=== PATIENT | male | born 1995 ===

== ENCOUNTER 2018-03-02 17:21 | Inpatient (IN) | payer MEDICAID ==
[2018-03-02 17:28] VITALS: BMI 27.4
--- NOTE | 2018-03-02 18:11 | ED PDOC ---
Arrival/HPI - General Chief Complaint: Psychiatric Evaluation Time Seen by Provider: 03/02/18 17:29 Historian: Patient - History of Present Illness Narrative History of Present Illness (Text): 03/02/18 18:09 22 year old male, with past medical history of depression, presents to the Emergency department from [facility] for psychiatric admission today. Patient was initially seen at [facility] earlier today for suicidal ideation/depression and was medically cleared at the facility and was subsequently transferred to [facility] for psychiatric admission. Patient currently denies any medical complaints. Patient denies any fevers, chills, headache, dizziness, chest pain, shortness of breath, abdominal pain, nausea, vomiting, diarrhea, back pain, neck pain, or any other complaints. Patient will be admitted to Dr. Sheikh's service as per documentation. Time/Duration: Prior to Arrival Symptom Onset: Gradual Activities at Onset: Light Context: Other (Transfer from [facility]) Past Medical History - Provider Review Nursing Documentation Reviewed: Yes - Infectious Disease Hx of Infectious Diseases: None - Psychiatric Hx Anxiety: Yes Hx Depression: Yes Hx Substance Use: Yes - Anesthesia Hx Anesthesia: No Family/Social History - Physician Review Nursing Documentation Reviewed: Yes Family/Social History: Unknown Family HX Smoking Status: Never Smoked Hx Alcohol Use: No Hx Substance Use: Yes Substance used: marijuana Allergies/Home Meds Allergies/Adverse Reactions: Allergies lactose Allergy (Verified 03/02/18 17:28) DIARRHEA Review of Systems - Physician Review All systems were reviewed & negative as marked: Yes - Review of Systems Constitutional: absent: Fevers Respiratory: absent: SOB, Cough Cardiovascular: absent: Chest Pain, WRIGHT Gastrointestinal: absent: Abdominal Pain, Diarrhea, Nausea, Vomiting Genitourinary Male: absent: Dysuria, Urinary Output Changes Musculoskeletal: absent: Back Pain, Neck Pain Skin: absent: Rash Neurological: absent: Headache, Dizziness Physical Exam Respiratory Rate: Normal Appearance: Positive for: Well-Appearing, Non-Toxic, Comfortable Pain Distress: None Mental Status: Positive for: Alert and Oriented X 3 - Systems Exam Head: Present: Atraumatic, Normocephalic Pupils: Present: PERRL Extroacular Muscles: Present: EOMI Conjunctiva: Present: Normal Mouth: Present: Moist Mucous Membranes Neck: Present: Normal Range of Motion Respiratory/Chest: Present: Clear to Auscultation, Good Air Exchange. No: Respiratory Distress, Accessory Muscle Use Cardiovascular: Present: Regular Rate and Rhythm, Normal S1, S2. No: Murmurs Abdomen: No: Tenderness, Distention, Peritoneal Signs Back: Present: Normal Inspection Upper Extremity: Present: Normal Inspection. No: Cyanosis, Edema Lower Extremity: Present: Normal Inspection. No: Edema Neurological: Present: GCS=15, CN II-XII Intact, Speech Normal Skin: Present: Warm, Dry, Normal Color. No: Rashes Psychiatric: Present: Alert, Oriented x 3, Normal Insight, Normal Concentration Medical Decision Making ED Course and Treatment: 03/02/18 18:11 Impression: 22 year old male presents to the Emergency department for psychiatric admission. Plan: -- Reassess and disposition Prior Visits: Notes and results from previous visits were reviewed. Progress Notes: Patient admitted under Dr. Sheikh's service. - Scribe Statement The provider has reviewed the documentation as recorded by the Scribe Nan August. All medical record entries made by the Scribe were at my direction and personally dictated by me. I have reviewed the chart and agree that the record accurately reflects my personal performance of the history, physical exam, medical decision making, and the department course for this patient. I have also personally directed, reviewed, and agree with the discharge instructions and disposition. Disposition/Present on Arrival - Present on Arrival Any Indicators Present on Arrival: No History of DVT/PE: No History of Uncontrolled Diabetes: No Urinary Catheter: No History of Decub. Ulcer: No History Surgical Site Infection Following: None - Disposition Have Diagnosis and Disposition been Completed?: Yes Diagnosis: Depression Disposition Time: 18:11 Patient Problems: Current Active Problems Problem Status Onset Depression Acute Condition: GOOD Forms: [employer] (Persian)
[2018-03-02 18:52] VITALS: O2SAT 98
[2018-03-02] MEDS ORDERED: Alum-Mag Hydrox-Simethicone Susp (30 mL) PO PRN (22:00)
[2018-03-02] MEDS ORDERED: Magnesium Hydroxide Susp 30 ml UD PO PRN (22:00)
--- NOTE | 2018-03-03 06:04 | PCM.BM ---
<Juan José Castellano O - Last Filed: 03/03/18 06:02> Treatment Plan Problems - Problems identified on initial assessmt Ineffective coping Date Initiated: 03/02/18 Time Initiated: 22:45 Assessment reference: NA Status: Monitor Hopelessness Date Initiated: 03/02/18 Time Initiated: 22:40 Assessment reference: NA Status: Monitor Medication nonadheherance Date Initiated: 03/02/18 Time Initiated: 22:50 Assessment reference: NA Status: Monitor Treatment assets and liabiliti Patient Assests: ADL independent, good support system, good interpersonal skills Patient Liabilities: financial problems, substance abuse - Milieu Protocol Maintain good personal hygiene: daily Encourage regular showers, daily Remind patient to perform daily oral care, daily Assist patient to perform ADL's Maintain personal safety: daily Educate patient to report safety concerns to staff, daily Monitor environment for contraband/sharps Medication safety: Monitor for expected outcome, potential side effects: daily, Assess barriers to learning: daily, Assess readiness for medication education: daily Family Contact Family involvement: Patient does not wish Family/SO involvement Family contact: Patient declines to allow family contact at present - Goals for Treatment Patient goals for treatment: To decrease my depression and anxiety Discharge/Continuing Care - Education Needs Education Needs: Patient Medication, Patient Coping Skills - Discharge Discharge Criteria: Tolerates medication w/o severe side effects <Alexandrea Matias Y - Last Filed: 03/03/18 10:33> Family Contact Family contact: Patient declines to allow family contact at present <Concepcion Sheikh A - Last Filed: 03/03/18 13:45> - Diagnosis (1) MDD (major depressive disorder) Status: Acute Interventions: 03/03/18 13:44 Psychoeducation Psychopharmacology/adjustment of medications as needed/ monitoring possible side effects Evaluate pt on daily basis Compliance with medications and follow up appointments Suicide and homicide risk assessment and prevention Relapse prevention Reduction of symptoms Improve functional status Family involvement As outpatient: cognitive behavioral therapy (2) RASHID (generalized anxiety disorder) Status: Acute Interventions: 03/03/18 13:45 Psychoeducation Psychopharmacology/adjustment of medications as needed/ monitoring possible side effects Evaluate pt on daily basis Discussion of importance of being compliant with medications and follow up appointments Suicide and homicide risk assessment and prevention, coping strategies, safety plan Reduction of symptoms Relaxation techniques and breathing exercises Improve functional status Family involvement Cognitive behavioral therapy as outpatient
[2018-03-03 06:50] LABS: BASO # 0.02 K/mm3 (0.0-2.0); BASO % 0.3 % (0.0-3.0); EOS # 0.2 (0.0-0.7); EOS % 2.6 % (1.5-5.0); GRAN # 4.09 (1.4-6.5); GRAN % 56.4 % (50.0-68.0); HEMOGLOBIN 15.9 g/dL (14.0-18.0); LYMPH # 2.4 (1.2-3.4); LYMPH % 32.6 % (22.0-35.0); MEAN CELL VOLUME 88.4 fl (80.0-105.0); MEAN CORPUSCULAR HEMOGLOBIN 29.8 pg (25.0-35.0); MEAN CORPUSCULAR HGB CONC 33.7 g/dl (31.0-37.0); MEAN PLATELET VOLUME 10.2 fl (7.0-11.0); MONO # 0.6 (0.1-0.6); MONO % 8.1 % (1.0-6.0); RBC 5.34 10^6/uL (3.5-6.1); RED CELL DISTRIBUTION WIDTH 12.4 % (11.5-14.5); WHITE BLOOD COUNT 7.3 10^3/uL (4.5-11.0)
[2018-03-03 06:52] LABS: GLUCOSE,FASTING 101 mg/dL (65-110); HDL CHOLESTEROL 47 mg/dL (29-60)
[2018-03-03 07:03] LABS: LDL CHOLESTEROL 176 mg/dL (0-129)
--- NOTE | 2018-03-03 13:40 | PCM.PSYCH ---
Initial Psychiatric Evaluation - Initial Psychiatric Evaluation Type of Admission: Voluntary Legal Status: Capacity (pt has capacity to sign consent for treatment) Chief Complaint (in patient's own words): "I thought life is not worth living" Patient's Reaction to Hospitalization: Pt will be not depressed or manic, will be more hopeful, will be not psychotic or anxious, will be not having thoughts of harming self or others, will be tolerating medications well, will not have major side effects, will be able to function, will not pose threat to self or others. History of Present Illness and Precipitating Events: shortly pt is 22yo male with self reported h/o depression/anxiety, ?borderline personality disorder, was transferred from [facility] for evaluation of depressive symptoms, hopelessness, inability to function, suicidal ideation with the plan to overdose on cyanide and "end it all", transfer was uneventful. pt was seen and examined at the treatment team meeting, presented with acceptable personal hygiene, but appearance was unkempt. good ADLs. pt said that he was feeling progressively more depressed for the past two years, since his father , pt reported that slowly he became hopeless/helpless, pt lost his job about 7months ago,. 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 pt reported that his depression and anxiety is interfering with his relationship with his girlfriend. pt said that prior to come to the hospital pt had thoughts of overdose on cyanide or cut his wrists, he spoke to his girlfriend who accompanied pt to the hospital. pt reported feeling anxious, and "heavy feeling in his chest", pt also reported to feel anxious all the times, and "I feel life is not worth living". difficulties to fall and to stay asleep, poor appetite. using marijuana recreational, pt denied smoking and denied drinking alcohol. UDS was positive for cannabis. pt denied being abuse. Patient denies any a/v/t hallucinations, denied paranoia, pt does not present to be psychotic. pt reported that he has irritability and mind racing, but never being diagnosed with bipolar. pt reported long h/o mental illness, was seen by psychiatrist, Dr. Paige at [facility]. Patient reports he's prescribed Seroquel, Ativan, and Ambien. Patient reports having difficulty with the side affects of the anti-depressant medications in which patient's sexual desires are suppressed. Patient reports feeling his depression worsen after taking anti-depressant medications. h/o two suicidal attempts, two years ago when pt tried to cut himself, nini in June 2015overdosed on flue medicine "it only damaged my liver, but now I am okay". , admission to [facility] two years ago, at [facility] for suicidal ideation, at [facility] pt said that at present moment he feels the same way when he wanted to end up his life two years ago, was not able to contract for safety. [facility], labs WNL, CBC, CMP, vitals stable. medical h/o: overdose, most likely on tylenol, h/o liver problems. pt denied family h/o mental illnesses, denied h/o suicidal attempts. 03/03/18 06:20 Lab Results 03/03/18 06:20: WBC 7.3, RBC 5.34, Hgb 15.9, Hct 47.2, MCV 88.4, MCH 29.8, MCHC 33.7, RDW 12.4, Plt Count 231, MPV 10.2, Gran % 56.4, Lymph % (Auto) 32.6, [place] % (Auto) 8.1 H, Eos % (Auto) 2.6, Baso % (Auto) 0.3, Gran # 4.09, Lymph # (Auto) 2.4, [place] # (Auto) 0.6, Eos # (Auto) 0.2, Baso # (Auto) 0.02 03/03/18 06:20: TSH 3rd Generation 0.93 03/03/18 06:20: Fasting Glucose 101, Triglycerides 98, Cholesterol 228 H, LDL Cholesterol Direct 176 H, HDL Cholesterol 47 03/03/18 06:20: Hemoglobin A1c 5.5 Vital Signs Temp Pulse Resp BP Pulse Ox 03/03/18 07:10 97.5 F L 90 20 119/79 03/03/18 03:45 19 03/02/18 19:57 97.8 F 72 17 122/82 98 03/02/18 17:21 97.8 F 78 18 124/76 98 The patient failed the outpatient lower level of care: Yes Current Medications: Active Medications Generic Name Dose Route Start Last Admin Trade Name Freq PRN Reason Stop Dose Admin Acetaminophen 325 mg 03/02/18 22:00 Tylenol 325mg Tab PO Q6H PRN Pain, Mild (1-3) Al Hydrox/Mg Hydrox/Simethicone 30 ml 03/02/18 22:00 Maalox Plus 30 Ml PO DAILY PRN Dyspepsia Lorazepam 2 mg 03/02/18 22:09 03/02/18 23:03 Ativan PO 2 mg Q6 PRN Administration Anxiety Protocol Lorazepam 2 mg 03/02/18 22:10 Ativan IM Q6H PRN Anxiety Protocol Magnesium Hydroxide 30 ml 03/02/18 22:00 Milk Of Magnesia PO DAILY PRN Constipation Trazodone HCl 50 mg 03/02/18 22:12 03/02/18 23:03 Desyrel PO 50 mg HS PRN Administration Insomnia Ziprasidone 20 mg 03/02/18 22:04 Geodon Inj IM Q8 PRN Agitation Protocol Ziprasidone 20 mg 03/02/18 22:08 Geodon Cap PO Q6 PRN Agitation Protocol Present on Admission - Present on Admission Any Indicators Present on Admission: No Review of Systems - Review of Systems Systems not reviewed;Unavailable: Acuity of Condition - Constitutional Constitutional: As Per HPI - EENT Eyes: As Per HPI Ears: As Per HPI Nose/Mouth/Throat: As Per HPI - Cardiovascular Cardiovascular: As Per HPI - Respiratory Respiratory: As Per HPI - Gastrointestinal Gastrointestinal: As Per HPI - Genitourinary Genitourinary: As Per HPI - Reproductive: Male Reproductive:Male: As Per HPI - Musculoskeletal Musculoskeletal: As Per HPI - Integumentary Integumentary: As Per HPI - Neurological Neurological: As Per HPI - Psychiatric Psychiatric: As Per HPI - Endocrine Endocrine: As Per HPI - Hematologic/Lymphatic Hematologic: As Per HPI Past Patient History - Past Psychiatric History Previous Treatment History: Inpatient Prior Professional Help: see HPI Prior Psychiatric Treatment: see HPI At what hospital: see HPI Duration: see HPI Nature of Treatment: see HPI Explanation of prior treatment: see HPI - PSYCHIATRIC Hx Depression: Yes Hx Substance Use: Yes - Infectious Disease Hx of Infectious Diseases: None - ANESTHESIA Hx Anesthesia: No - Medical/Surgical History Reviewed & confirmed: by de Meds Allergies/Adverse Reactions: Allergies Allergy/AdvReac Type Severity Reaction Status Date / Time lactose Allergy DIARRHEA Verified 03/03/18 05:50 Mental Status Examination - Personal Presentation Personal Presentation: Looks stated age - Affect Affect: Flat - Motor Activity Motor Activity: Psychomotor Retardation - Reliability in Providing Information Reliability in Providing Information: Fair - Speech Speech: Organized - Mood Mood: Depressed, Anxious - Formal Thought Process Formal Thought Process: No Impairment - Obsessions/Compulsions Obsessions: None Compulsions: None - Cognitive Functions Orientation: Person Sensorium: Alert Attention/Concentration: Easily distracted Estimate of Intelligence: Average Judgement: Intact, as evidence by: Insight regarding need for hospitalization - Risk Risk: Suicidal, Self-mutilation, Diminished functioning - Strength & Assets Inventory Strength & Assets Inventory: Family support, Employment history, Cooperative - Limitations Limitations: Other (good physical health, no psychosis, good insight) Psychiatric Physical Exam - Physical Exam Reviewed and confirmed: Emergency Department Physical Exam Results - Vital Signs Recent Vital Signs: Last Vital Signs Temp 97.5 F L 03/03/18 07:10 Pulse 90 03/03/18 07:10 Resp 20 03/03/18 07:10 BP 119/79 03/03/18 07:10 Pulse Ox 98 03/02/18 19:57 - Labs Result Diagrams: 03/03/18 06:20 Labs: Laboratory Results - last 24 hr 03/03/18 03/03/18 03/03/18 06:20 06:20 06:20 WBC 7.3 RBC 5.34 Hgb 15.9 Hct 47.2 MCV 88.4 MCH 29.8 MCHC 33.7 RDW 12.4 Plt Count 231 MPV 10.2 Gran % 56.4 Lymph % (Auto) 32.6 [place] % (Auto) 8.1 H Eos % (Auto) 2.6 Baso % (Auto) 0.3 Gran # 4.09 Lymph # (Auto) 2.4 [place] # (Auto) 0.6 Eos # (Auto) 0.2 Baso # (Auto) 0.02 Fasting Glucose 101 Triglycerides 98 Cholesterol 228 H LDL Cholesterol Direct 176 H HDL Cholesterol 47 TSH 3rd Generation 0.93 - EKG Data EKG Interpreted by: ER Physician DSM Plan - DSM 5 DSM 5 Diagnosis: MDD r/o RASHID r/o bipolar cannabis abuse - Recommended/Plan of Treatment Treatment Recommendations and Plan of Treatment: Milieu/structure/supportive therapy Medical consult appreciated SW consultation for discharge plan and social issues Med management wellbutrin for depression ativan for anxiety seroquel for mood stabilization and insomnia Family involvement Follow up on labs Will monitor closely Pt was educated about risk/benefits and alternatives of medications, coping strategies (safety plan, suicide prevention), relapse prevention, importance of follow up with psychiatrist and therapist, stay away from drugs/alcohol/smoking Projected ELOS: 7days Prognosis: fair Discharge Plan and Discharge Criteria: Day treatment program - Tobacco Cessation Tobacco Use Status for the last 30 days: Non User Tobacco Use Treatment Practical Counseling Provided: No Tobacco Use Treatment FDA-Approved Cessation Medication Provided: No - Alcohol or Substance Abuse Does the patient have an Alcohol or Substance Abuse Disorder: Yes Initial Psych Certification - Initial Certification I certify that the inpatient psychiatric facility admission was medically necessary for either: Treatment which could reasonbly be expected to improve pt's condition I estimate of hospitalization is necessary for proper treatment of the patient: 7 Unit of Time: Days My plans for post-hospital care for this patient are: day treatment program
[2018-03-03] MEDS ORDERED: Sodium Chloride 0.9% 1,000 ML IV SCH (15:15)
--- NOTE | 2018-03-03 15:56 | CP.PCM.CON ---
History of Present Illness - History of Present Illness History of Present Illness: PGY1 Medicine Consult Note for Dr. Stein Reason for Consult: Medical Consult Patient is a 22-year-old male with PMH significant for suicidal ideation. Patient was previously seen at [facility] for psychiatric admission prior to arrival to ED. Patient was initially seen at [facility] for suicidal ideation/depression and was medically cleared at the facility and was subsequently transferred to [facility] for psychiatric admission. Today, Patient complains of nausea and vomiting that has been going on for 2 weeks. Patient says he has been limiting his diet to liquids; mostly water due to his nausea, and when he tries to eat solid foods, he becomes too nausious and will "throw up soon after" he consumes food. Patient admits to diffuse abdominal pain that he says is "all over" and states he cannot localize, quantifies as 8/10, crampy in quality. Of note, Patient was recently around his girlfriend who he says had "flu like symptoms." Patient admits to associated diarrhea (non- bloody), vomiting (non-bloody, non-billious), fever, chills. Patient otherwise denies chest pain, shortness of breath, constipation, previous abdominal surgeries. Of note, patient admits to increasing his fast-food intake during the last few months. 12 Point ROS otherwise unremarkable. PMH: Suicidal Ideation, MDD, RASHID, Depression Surgeries: Patient denies PMD: Tommy Dorado Allergies: Lactose (intolerance) Review of Systems - Review of Systems All systems: reviewed and no additional remarkable complaints except Review of Systems: ROS unremarkable other than mentioned in HPI Past Patient History - Infectious Disease Hx of Infectious Diseases: None - Past Social History Smoking Status: Never Smoked - PSYCHIATRIC Hx Depression: Yes Hx Substance Use: Yes - ANESTHESIA Hx Anesthesia: No Meds Allergies/Adverse Reactions: Allergies Allergy/AdvReac Type Severity Reaction Status Date / Time lactose Allergy DIARRHEA Verified 03/03/18 05:50 - Medications Medications: Current Medications Acetaminophen (Tylenol 325mg Tab) 325 mg PO Q6H PRN PRN Reason: Pain, Mild (1-3) Al Hydrox/Mg Hydrox/Simethicone (Maalox Plus 30 Ml) 30 ml PO DAILY PRN PRN Reason: Dyspepsia Bupropion HCl (Wellbutrin) 75 mg PO BID [facility] Sodium Chloride (Sodium Chloride 0.9%) 1,000 mls @ 100 mls/hr IV .Q10H ALEKSANDAR Loperamide HCl (Imodium) 2 mg PO QID PRN PRN Reason: Diarrhea Lorazepam (Ativan) 2 mg PO Q6 PRN; Protocol PRN Reason: Anxiety Last Admin: 03/03/18 13:16 Dose: 2 mg Lorazepam (Ativan) 2 mg IM Q6H PRN; Protocol PRN Reason: Anxiety Lorazepam (Ativan) 1 mg PO BID [facility]; Protocol Magnesium Hydroxide (Milk Of Magnesia) 30 ml PO DAILY PRN PRN Reason: Constipation Ondansetron HCl (Zofran Odt) 4 mg PO Q8H PRN PRN Reason: Nausea/Vomiting Quetiapine Fumarate (Seroquel) 100 mg PO HS ALEKSANDAR; Protocol Ziprasidone (Geodon Inj) 20 mg IM Q8 PRN; Protocol PRN Reason: Agitation Ziprasidone (Geodon Cap) 20 mg PO Q6 PRN; Protocol PRN Reason: Agitation Physical Exam - Constitutional Appears: Well, Non-toxic, No Acute Distress - Head Exam Head Exam: ATRAUMATIC, NORMAL INSPECTION, NORMOCEPHALIC - Eye Exam Eye Exam: EOMI, Normal appearance, PERRL Pupil Exam: NORMAL ACCOMODATION - ENT Exam ENT Exam: Mucous Membranes Moist - Neck Exam Neck exam: Positive for: Normal Inspection - Respiratory Exam Respiratory Exam: Clear to Auscultation Bilateral, NORMAL BREATHING PATTERN - Cardiovascular Exam Cardiovascular Exam: REGULAR RHYTHM, +S1, +S2. absent: Bradycardia, Tach ycardia, Gallop, Systolic Murmur - GI/Abdominal Exam GI & Abdominal Exam: Normal Bowel Sounds, Soft, Tenderness (diffuse ). absent: Distended, Firm, Guarding, Hernia - Extremities Exam Extremities exam: Positive for: full ROM, normal capillary refill, normal inspection, pedal pulses present. Negative for: tenderness - Back Exam Back exam: NORMAL INSPECTION - Neurological Exam Neurological exam: Alert, CN II-XII Intact, Oriented x3, Reflexes Normal - Psychiatric Exam Psychiatric exam: Depressed, Normal Affect, Normal Mood - Skin Skin Exam: Dry, Intact, Normal Color, Warm Results - Vital Signs Recent Vital Signs: Last Vital Signs Temp 97.5 F L 03/03/18 07:10 Pulse 90 03/03/18 07:10 Resp 20 03/03/18 07:10 BP 119/79 03/03/18 07:10 Pulse Ox 98 03/02/18 19:57 - Labs Result Diagrams: 03/03/18 06:20 Labs: Laboratory Results - last 24 hr 03/03/18 03/03/18 03/03/18 06:20 06:20 06:20 WBC RBC Hgb Hct MCV MCH MCHC RDW Plt Count MPV Gran % Lymph % (Auto) [place] % (Auto) Eos % (Auto) Baso % (Auto) Gran # Lymph # (Auto) [place] # (Auto) Eos # (Auto) Baso # (Auto) Fasting Glucose 101 Hemoglobin A1c 5.5 Triglycerides 98 Cholesterol 228 H LDL Cholesterol Direct 176 H HDL Cholesterol 47 TSH 3rd Generation 0.93 03/03/18 06:20 WBC 7.3 RBC 5.34 Hgb 15.9 Hct 47.2 MCV 88.4 MCH 29.8 MCHC 33.7 RDW 12.4 Plt Count 231 MPV 10.2 Gran % 56.4 Lymph % (Auto) 32.6 [place] % (Auto) 8.1 H Eos % (Auto) 2.6 Baso % (Auto) 0.3 Gran # 4.09 Lymph # (Auto) 2.4 [place] # (Auto) 0.6 Eos # (Auto) 0.2 Baso # (Auto) 0.02 Fasting Glucose Hemoglobin A1c Triglycerides Cholesterol LDL Cholesterol Direct HDL Cholesterol TSH 3rd Generation Assessment & Plan - Assessment and Plan (Free Text) Assessment: Patient is a 22-year-old male with PMH significant for suicidal ideation. Patient was previously seen at [facility] for psychiatric admission. Patient now complaining of abdominal, diarrhea, nausea ongoing x2 weeks. Gastroenteritis / rule-out SBO / rule-out C-diff - Likely viral etiology - Follow-up on Stool for C-diff, cultures - Follow-up on Abdominal X-ray - Start: imodium PRN - Encourage oral hydration - Start: Zofran 4mg PO ODT - Monitor Hyperlipidemia - LDL elevated - Total cholesterol elevated - Patient educated on avoiding consumption of fast-food/ fatty foods - Patient encouraged to incorporate exercise into daily routine with moderate intensity exercises 30 minutes per day x4 times per week MDD/RASHID/Suicidal Ideation - Management per Psychiatric Team Patient seen and case discussed in detail with
--- NOTE | 2018-03-04 14:36 | PCM.PYCHPN ---
Psychiatric Progress Note - Psychiatric Progress Note Patient seen today, length of contact: 30 minutes Patient Chief Complaint: "I am trying my best to stay positive" Problems Identified/Issues Discussed: Suicide/ homicide prevention, past psychiatric h/o, current psychiatric symptoms, medical problems, risk/benefits and alternatives of medications, medications compliance, coping strategies, substance abuse h/o, relapse prevention, importance of follow up with psychiatrist and therapist, discharge plan. Medical Problems: Patient complains of nausea and vomiting, patient was seen by medical team, please see consult note for more detailed information Diagnostic Results: 03/03/18 06:20 Lab Results 03/03/18 06:20: WBC 7.3, RBC 5.34, Hgb 15.9, Hct 47.2, MCV 88.4, MCH 29.8, MCHC 33.7, RDW 12.4, Plt Count 231, MPV 10.2, Gran % 56.4, Lymph % (Auto) 32.6, [place] % (Auto) 8.1 H, Eos % (Auto) 2.6, Baso % (Auto) 0.3, Gran # 4.09, Lymph # (Auto) 2.4, [place] # (Auto) 0.6, Eos # (Auto) 0.2, Baso # (Auto) 0.02 03/03/18 06:20: RPR Nonreactive 03/03/18 06:20: TSH 3rd Generation 0.93 03/03/18 06:20: Fasting Glucose 101, Triglycerides 98, Cholesterol 228 H, LDL Cholesterol Direct 176 H, HDL Cholesterol 47 03/03/18 06:20: Hemoglobin A1c 5.5 Vital Signs Temp Pulse Resp BP Pulse Ox 03/04/18 07:29 97.9 F 74 20 114/70 03/04/18 07:26 97.9 F 74 20 111/74 03/03/18 16:00 91 H 108/61 03/03/18 07:10 97.5 F L 90 20 119/79 03/03/18 03:45 19 03/02/18 19:57 97.8 F 72 17 122/82 98 03/02/18 17:21 97.8 F 78 18 124/76 98 DSM 5 Symptoms Update: shortly pt is 22yo male with self reported h/o depression/anxiety, ?borderline personality disorder, was transferred from [facility] for evaluation of depressive symptoms, hopelessness, inability to function, suicidal ideation with the plan to overdose on cyanide and "end it all", transfer was uneventful. pt was seen and examined in the day treatment area patient presented with acceptable personal hygiene, but appearance was unkempt. good ADLs. Patient reports that he is trying his best to "stay positive" patient was concerned about his abdominal pain and nausea, patient reported that she was not able to sleep overnight time, patient reported that she still feels "depressed and hopeless", but denied any intent or plan to kill himself. As per staff patient is visible in the unit, no agitation or aggression, but flat affect, not very interactive. Patient denies any a/v/t hallucinations, denied paranoia, pt does not present to be psychotic. So far patient tolerates medications well, no side effects observed or reported, aims 0, no EPS. Impression: DSM 5 Diagnosis: MDD r/o RASHID r/o bipolar cannabis abuse Medication Change: Yes (Started 03/03/2018) Medical Record Reviewed: Yes Consults ordered or reviewed: Patient was seen by medical team, consult appreciated "Patient is a 22-year-old male with PMH significant for suicidal ideation. Patient was previously seen at [facility] for psychiatric admission. Patient now complaining of abdominal, diarrhea, nausea ongoing x2 we eks. Gastroenteritis / rule-out SBO / rule-out C-diff - Likely viral etiology - Follow-up on Stool for C-diff, cultures - Follow-up on Abdominal X-ray - Start: imodium PRN - Encourage oral hydration - Start: Zofran 4mg PO ODT - Monitor Hyperlipidemia - LDL elevated - Total cholesterol elevated - Patient educated on avoiding consumption of fast-food/ fatty foods - Patient encouraged to incorporate exercise into daily routine with moderate i ntensity exercises 30 minutes per day x4 times per week" Mental Status Examination - Cognitive Function Orientation: Person Memory: Intact Attention: Poor Concentration: Poor Association: WNL Fund of Knowledge: WNL - Mood Mood: Depressed, Anxious - Affect Affect: Flat - Formal Thought Process Formal Thought Process: No Impairment - Suicidal Ideation Suicidal Ideation: No - Homicidal Ideation Homicidal Ideation: No Goal/Treatment Plan - Goal/Treatment Plan Need for Continued Stay: Remain at risks for inpatient hospitalization, Severe depression anxiety, Discharge may exacerbated symptoms, Severe functional impairment Progress Toward Problem(s) and Goals/Treatment Plan: Milieu/structure/supportive therapy Medical consult appreciated SW consultation for discharge plan and social issues Med management wellbutrin for depression ativan for anxiety seroquel for mood stabilization and insomnia Family involvement Follow up on labs Will monitor closely Pt was educated about risk/benefits and alternatives of medications, coping strategies (safety plan, suicide prevention), relapse prevention, importance of follow up with psychiatrist and therapist, stay away from drugs/alcohol/smoking Estimated Date of D/C: 03/10/18
--- NOTE | 2018-03-05 17:25 | PCM.PYCHPN ---
Psychiatric Progress Note - Psychiatric Progress Note Patient seen today, length of contact: 30 minutes Patient Chief Complaint: "My energy is better" Problems Identified/Issues Discussed: Suicide/ homicide prevention, past psychiatric h/o, current psychiatric symptoms, medical problems, risk/benefits and alternatives of medications, medications compliance, coping strategies, substance abuse h/o, relapse prevention, importance of follow up with psychiatrist and therapist, discharge plan. Medical Problems: Patient complains of nausea and vomiting, patient was seen by medical team, please see consult note for more detailed information Diagnostic Results: 03/03/18 06:20 Lab Results 03/03/18 06:20: WBC 7.3, RBC 5.34, Hgb 15.9, Hct 47.2, MCV 88.4, MCH 29.8, MCHC 33.7, RDW 12.4, Plt Count 231, MPV 10.2, Gran % 56.4, Lymph % (Auto) 32.6, [place] % (Auto) 8.1 H, Eos % (Auto) 2.6, Baso % (Auto) 0.3, Gran # 4.09, Lymph # (Auto) 2.4, [place] # (Auto) 0.6, Eos # (Auto) 0.2, Baso # (Auto) 0.02 03/03/18 06:20: RPR Nonreactive 03/03/18 06:20: TSH 3rd Generation 0.93 03/03/18 06:20: Fasting Glucose 101, Triglycerides 98, Cholesterol 228 H, LDL Cholesterol Direct 176 H, HDL Cholesterol 47 03/03/18 06:20: Hemoglobin A1c 5.5 Vital Signs Temp Pulse Resp BP Pulse Ox 03/04/18 07:29 97.9 F 74 20 114/70 03/04/18 07:26 97.9 F 74 20 111/74 03/03/18 16:00 91 H 108/61 03/03/18 07:10 97.5 F L 90 20 119/79 03/03/18 03:45 19 03/02/18 19:57 97.8 F 72 17 122/82 98 03/02/18 17:21 97.8 F 78 18 124/76 98 DSM 5 Symptoms Update: shortly pt is 22yo male with self reported h/o depression/anxiety, ?borderline personality disorder, was transferred from [facility] for evaluation of depressive symptoms, hopelessness, inability to function, suicidal ideation with the plan to overdose on cyanide and "end it all", transfer was uneventful. pt was seen and examined today in his room, patient appears to be self isolating, reading a book, patient reported that his sleep is improving, appetite is back, patient reported "my energy is better", patient still appears to be depressed, patient presented with acceptable personal hygiene, but appearance was unkempt. good ADLs. Patient reported that she still feels "depressed and hopeless", but denied any intent or plan to kill himself. As per staff patient is more visible in the unit, but prefers to be alone, no agitation or aggression, but flat affect, not very interactive. Patient denies any a/v/t hallucinations, denied paranoia, pt does not present to be psychotic. So far patient tolerates medications well, no side effects observed or reported, aims 0, no EPS. Impression: DSM 5 Diagnosis: MDD r/o RASHID r/o bipolar cannabis abuse Medication Change: Yes (Wellbutrin increased) Medical Record Reviewed: Yes Mental Status Examination - Cognitive Function Orientation: Person Memory: Intact Attention: Poor Concentration: Poor Association: WNL Fund of Knowledge: WNL - Mood Mood: Depressed, Anxious - Affect Affect: Flat - Formal Thought Process Formal Thought Process: No Impairment - Suicidal Ideation Suicidal Ideation: No - Homicidal Ideation Homicidal Ideation: No Goal/Treatment Plan - Goal/Treatment Plan Need for Continued Stay: Remain at risks for inpatient hospitalization, Severe depression anxiety, Discharge may exacerbated symptoms, Severe functional impairment Progress Toward Problem(s) and Goals/Treatment Plan: Milieu/structure/supportive therapy Medical consult appreciated consultation for discharge plan and social issues Med management wellbutrin increased to 100 mg twice a day for depression ativan for anxiety seroquel for mood stabilization and insomnia Family involvement Follow up on labs Will monitor closely Pt was educated about risk/benefits and alternatives of medications, coping strategies (safety plan, suicide prevention), relapse prevention, importance of follow up with psychiatrist and therapist, stay away from drugs/alcohol/smoking Estimated Date of D/C: 03/10/18
--- NOTE | 2018-03-06 11:12 | RAD ---
Date of service: 03/06/2018 HISTORY: abdominal pain COMPARISON: None available. FINDINGS: BOWEL: Normal. No obstruction. No free air. BONES: Normal. OTHER FINDINGS: None. IMPRESSION: No active disease.
--- NOTE | 2018-03-06 12:20 | PCM.PYCHPN ---
Psychiatric Progress Note - Psychiatric Progress Note Patient seen today, length of contact: 30 minutes Problems Identified/Issues Discussed: I reviewed assessment and recent notes. Patient was interviewed at bedside. He is superficially cooperative and responses are coherent and relevant to qu estioning. Patient reports that he is irritable and feels edgy. Sleep is poor and patient indicates that he has a low frustration tolerance for the normal noises "the bustle" of an inpatient unit. He is tolerating his medications and denies any new discomfort or pain. Affect is constricted and irritable. Patient has been more visible in the unit, but generally keeps to himself. Reluctant to participate in groups and activities. There have been no behavioral issues thus far. Diagnostic Results: MDD r/o RASHID r/o bipolar cannabis abuse Medication Change: Yes (seroquel increased) Medical Record Reviewed: Yes Mental Status Examination - Cognitive Function Orientation: Person Memory: Intact Attention: Poor Concentration: Poor Association: WNL Fund of Knowledge: WNL - Mood Mood: Depressed, Anxious - Affect Affect: Flat - Formal Thought Process Formal Thought Process: No Impairment - Suicidal Ideation Suicidal Ideation: No - Homicidal Ideation Homicidal Ideation: No Goal/Treatment Plan - Goal/Treatment Plan Need for Continued Stay: Remain at risks for inpatient hospitalization, Severe depression anxiety, Discharge may exacerbated symptoms, Severe functional impairment Progress Toward Problem(s) and Goals/Treatment Plan: * c/w current tx and plan * Increased seroquel to 150 mg po hs for c/o internal agitation, lability and restless sleep * Vitals reviewed and noted below: Selected Entries 03/04/18 03/05/18 07:29 07:48 Temperature 97.9 F 98.5 F Pulse Rate 74 70 Respiratory 20 18 Rate Blood Pressure 114/70 106/64 Estimated Date of D/C: 03/10/18
[2018-03-07 07:29] VITALS: RESP 20
--- NOTE | 2018-03-07 09:42 | PCM.PYCHPN ---
Psychiatric Progress Note - Psychiatric Progress Note Patient seen today, length of contact: 30 minutes Problems Identified/Issues Discussed: I reviewed recent notes. Patient is still depressed, guarded and easton. Feels tired and irritable. Affect is constricted. Patient has been compliant with his medications and denies s/e, new discomfort or pain. Patient has been more visible in the unit, but generally keeps to himself. Spends a lot of time in his room and remains reluctant to participate in groups and activities. There have been no behavioral issues thus far. Diagnostic Results: MDD r/o RASHID r/o bipolar cannabis abuse Medication Change: Yes (seroquel increased) Medical Record Reviewed: Yes Mental Status Examination - Cognitive Function Orientation: Person Memory: Intact Attention: Poor Concentration: Poor Association: WNL Fund of Knowledge: WNL - Mood Mood: Depressed, Anxious - Affect Affect: Flat - Formal Thought Process Formal Thought Process: No Impairment - Suicidal Ideation Suicidal Ideation: No - Homicidal Ideation Homicidal Ideation: No Goal/Treatment Plan - Goal/Treatment Plan Need for Continued Stay: Remain at risks for inpatient hospitalization, Severe depression anxiety, Discharge may exacerbated symptoms, Severe functional impairment Progress Toward Problem(s) and Goals/Treatment Plan: * c/w current tx and plan * Increased seroquel to 150 mg po hs on 03/06/18 for c/o internal agitation, lability and restless sleep * Vitals reviewed and noted below: Selected Entries 03/05/18 03/06/18 07:48 07:29 Temperature 98.5 F 98.1 F Pulse Rate 70 73 Respiratory 18 18 Rate Blood Pressure 106/64 102/67 * Abdominal xray on 03/06/18~no active disease * No new weekend lab results thus far Estimated Date of D/C: 03/10/18
[2018-03-08 07:08] VITALS: BP 120/78; PULSE 77; TEMP 97.8
--- NOTE | 2018-03-08 09:40 | PCM.PYCHDC ---
Mental Status Examination - Mental Status Examination Orientation: Person, Place, Situation Memory: Intact Mood: Neutral Affect: Broad Speech: Appropriate Attention: WNL Concentration: WNL Association: WNL Fund of Knowledge: WNL Formal Thought Process: No Impairment Description of patient's judgement and insight: Much improved and fair insight and judgment Psychotic Thoughts and Behaviors: Patient denied perceptual disturbance including hallucinations or paranoia. Delusions were not elicited on day of discharge. Suicidal Ideation: No Current Homicidal Ideation?: No Discharge Summary - Discharge Note Reason for Hospitalization: shortly pt is 22yo male with self reported h/o depression/anxiety, ?borderline personality disorder, was transferred from [facility] for evaluation of depressive symptoms, hopelessness, inability to function, suicidal ideation with the plan to overdose on cyanide and "end it all", transfer was uneventful. Psychiatric History (includes Medical, Family, Personal Hx): see HPI Laboratory Data: Laboratory Tests 03/03/18 03/03/18 03/03/18 06:20 06:20 06:20 WBC RBC Hgb Hct MCV MCH MCHC RDW Plt Count MPV Gran % Lymph % (Auto) [place] % (Auto) Eos % (Auto) Baso % (Auto) Gran # Lymph # (Auto) [place] # (Auto) Eos # (Auto) Baso # (Auto) Fasting Glucose 101 Hemoglobin A1c 5.5 Triglycerides 98 Cholesterol 228 H LDL Cholesterol Direct 176 H HDL Cholesterol 47 TSH 3rd Generation 0.93 RPR C. difficile Tox B Gene 03/03/18 03/03/18 03/04/18 06:20 06:20 17:00 WBC 7.3 RBC 5.34 Hgb 15.9 Hct 47.2 MCV 88.4 MCH 29.8 MCHC 33.7 RDW 12.4 Plt Count 231 MPV 10.2 Gran % 56.4 Lymph % (Auto) 32.6 [place] % (Auto) 8.1 H Eos % (Auto) 2.6 Baso % (Auto) 0.3 Gran # 4.09 Lymph # (Auto) 2.4 [place] # (Auto) 0.6 Eos # (Auto) 0.2 Baso # (Auto) 0.02 Fasting Glucose Hemoglobin A1c Triglycerides Cholesterol LDL Cholesterol Direct HDL Cholesterol TSH 3rd Generation RPR Nonreactive C. difficile Tox B Gene Not detected Consultations:: List each consultation separately and include: 1. Reason for request. 2. Findings. 3. Follow-up Consultations: Consulted on by Dr. Looney on 03/03/18 Summary of Hospital Course include:: 1. Description of specific treatment plan utilized for patients during their course of treatmen. 2. Summarize the time- course for resolution of acute symptoms and/or regressed behaviors. 3. Describe issues identified and worked on during hospitalization. 4. Describe medication utilized. 5. Describe medical problems identified and treated. 6. Reassessment of suicide risk Summary of Hospital Course: PER DR. MEDELLIN'S ADMISSION NOTE ON 03/03/18 shortly pt is 22yo male with self reported h/o depression/anxiety, ?borderline personality disorder, was transferred from [facility] for evaluation of depressive symptoms, hopelessness, inability to function, suicidal ideation with the plan to overdose on cyanide and "end it all", transfer was uneventful. pt was seen and examined at the treatment team meeting, presented with acceptable personal hygiene, but appearance was unkempt. good ADLs. pt said that he was feeling progressively more depressed for the past two years, since his father , pt reported that slowly he became hopeless/helpless, pt lost his job about 7months ago,. 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 pt reported that his depression and anxiety is interfering with his relationship with his girlfriend. pt said that prior to come to the hospital pt had thoughts of overdose on cyanide or cut his wrists, he spoke to his girlfriend who accompanied pt to the hospital. pt reported feeling anxious, and "heavy feeling in his chest", pt also reported to feel anxious all the times, and "I feel life is not worth living". difficulties to fall and to stay asleep, poor appetite. using marijuana recreational, pt denied smoking and denied drinking alcohol. UDS was positive for cannabis. pt denied being abuse. Patient denies any a/v/t hallucinations, denied paranoia, pt does not present to be psychotic. pt reported that he has irritability and mind racing, but never being diagnosed with bipolar. pt reported long h/o mental illness, was seen by psychiatrist, Dr. Paige at [facility]. Patient reports he's prescribed Seroquel, Ativan, and Ambien. Patient reports having difficulty with the side affects of the anti-depressant medications in which patient's sexual desires are suppressed. Patient reports feeling his depression worsen after taking anti-depressant medications. h/o two suicidal attempts, two years ago when pt tried to cut himself, nini in June 2015overdosed on flue medicine "it only damaged my liver, but now I am okay". , admission to [facility] two years ago, at [facility] for suicidal ideation, at [place] pt said that at present moment he feels the same way when he wanted to end up his life two years ago, was not able to contract for safety. report reviewed from the [facility], [place], labs WNL, CBC, CMP, vitals stable. medical h/o: overdose, most likely on tylenol, h/o liver problems. pt denied family h/o mental illnesses, denied h/o suicidal attempts. PER DR. BESS'S PROGRESS NOTE ON 03/07/18 I reviewed recent notes. Patient is still depressed, guarded and [place]on. Feels tired and irritable. Affect is constricted. Patient has been compliant with his medications and denies s/e, new discomfort or pain. Patient has been more visible in the unit, but generally keeps to himself. Spends a lot of time in his room and remains reluctant to participate in groups and activities. There have been no behavioral issues thus far. DR. BESS'S DISCHARGE NOTE 03/08/18 I interviewed patient in the dayroom to assess continued stability for discharge. Patient is alert and well-oriented to month, year and circumstances. Eye contact is good. Patient feels improved and denies any suicidal thoughts or thoughts to harm others. Affect is calm and appropriately reactive and much more related. Patient denies hallucinations and is not responding to internal stimuli. He denies paranoia. Thought process is clear and much improved since admission. Patient feels comfortable with discharge today and denies any new concerns. Denies acute discomfort or pain. Tolerating medications and denies any issues with them. Delusions and paranoia were not elicited on day of discharge. - Final Diagnosis (DSM 5) Condition upon Discharge: GOOD DSM 5: MDD r/o RASHID r/o bipolar cannabis abuse Disposition: HOME/ ROUTINE Follow-up Treatment Plan: PLEASE REFER TO SW NOTE FOR DISPOSTION PLAN This provider called [facility] pharmacy at 9:25 am and authorized 14 day supply + 1RF Wellbutrin 100 mg po bid Ativan 1 mg po bid Seroquel 150 mg po HS - Smoking Cessation Smoking Cessation Medication prescribed: No - Antipsychotic Medications Pt discharged on 2 or more routine antipsychotic medications: No
== END 2018-03-08 14:21 | disposition home or self-care (01) | DRG 426 ==
LOC: ED 17:21 → ERH 18:09 → PSYC 20:02
PROVIDERS: ADMIT Psychiatry & Neurology Psychiatry; ATTEND Psychiatry & Neurology Psychiatry
PROC: GZ3ZZZZ Medication Management (ICD-10-PCS; principal; 2018-03-02)
DX: F32.9 Major depressive disorder, single episode, unspecified (principal); R45.851 Suicidal ideations; F12.10 Cannabis abuse, uncomplicated; F41.1 Generalized anxiety disorder; F60.3 Borderline personality disorder; G47.00 Insomnia, unspecified; E78.5 Hyperlipidemia, unspecified; Z56.0 Unemployment, unspecified